=== PATIENT | male | born 1955 | race Caucasian/White ===

== ENCOUNTER 2020-03-14 07:14 | Outpatient (CLI) | payer BC, OTHER ==
[2020-03-15 14:23] LABS: SARS-CoV-2 MS2 Positive; SARS-CoV-2 N Gene Negative; SARS-CoV-2 S Gene Negative; SARS-CoV-2 by NAA Not Detected (NotDetected); SARS-CoV-2 orf1ab Negative
== END 2020-03-14 07:15 | disposition home or self-care (01) ==
LOC: LABBT 07:14
PROVIDERS: ATTEND Internal Medicine Cardiovascular Disease
DX: Z01.812 Encounter for preprocedural laboratory examination (principal); Z11.59 Encounter for screening for other viral diseases; I48.91 Unspecified atrial fibrillation
CPT/HCPCS: 87635; U0003

== ENCOUNTER 2021-08-27 09:21 | Outpatient (CLI) | payer BC ==
[2021-08-27 10:52] LABS: Hemoglobin 13.4 g/dL (13.5-17.5); Mean Corpuscular HGB CONC 33.5 g/dL (32.0-36.0); Mean Corpuscular Hemoglobin 33.3 pg (27.0-33.0); Mean Corpuscular Volume 99.5 fl (81.2-95.1); Mean Platelet Volume 9.7 fl (7.4-10.4); Platelet Count 183 10x3/uL (150-450); RBC Distribution Width 12.2 % (11.5-14.5); Red Blood Cell (RBC) Count 4.02 10x6/uL (4.32-5.72); White Blood Cell (WBC) Count 3.9 10x3/uL (3.5-10.5)
[2021-08-27 11:20] LABS: INR-International Normal Ratio 1.1; PTT 29.5 sec (22.0-33.0); Prothrombin Time 11.6 sec (9.5-12.1)
[2021-08-27 11:21] LABS: Anion Gap 11 mmol/L (10-20); BUN (Urea Nitrogen) 14 mg/dL (8.4-25.7); Calc. Creatinine Clearance 0 mL/min (70-130); Calcium 9.3 mg/dL (7.8-10.44); Carbon Dioxide 27 mmol/L (23-31); Chloride 101 mmol/L (98-107); Glucose 89 mg/dL (80-115); Potassium 4.9 mmol/L (3.5-5.1); Sodium 134 mmol/L (136-145)
[2021-08-27 21:44] LABS: SARS-CoV-2 PCR by NAA Not Detected (NotDetected)
== END 2021-08-27 09:22 | disposition home or self-care (01) ==
LOC: LABBT 09:21
PROVIDERS: ATTEND Internal Medicine Cardiovascular Disease
DX: Z01.812 Encounter for preprocedural laboratory examination (principal); I48.0 Paroxysmal atrial fibrillation; Z20.822 Contact with and (suspected) exposure to COVID-19
CPT/HCPCS: 80048; 85027; 85610; 85730; U0003; U0005

== ENCOUNTER 2021-09-01 06:09 | Day surgery (SDC) | payer MEDICARE, BC ==
[2021-08-21 11:22] VITALS: BMI 33.0
[2021-09-01] MEDS ORDERED: Heparin 10,000 UNITS/ 10 ML VIAL ONE (06:39)
[2021-09-01] MEDS ORDERED: Heparin 25,000 units/D5W 500 ML ONE (06:39)
[2021-09-01] MEDS ORDERED: Protamine Sulfate 50 MG/5 ML VIAL ONE (06:39)
[2021-09-01] MEDS ORDERED: Fentanyl 100 MCG/2 ML VIAL ONE ×3 (06:48→12:11)
[2021-09-01] MEDS ORDERED: Phenylephrine 10 MG/ML VIAL ONE (06:49)
[2021-09-01] MEDS ORDERED: Glycopyrrolate 0.2 MG/ML 5 ML SYRINGE ONE (07:57)
[2021-09-01] MEDS ORDERED: Rocuronium Bromide 10 MG/ML (10ML VIAL) ONE (07:57)
[2021-09-01] MEDS ORDERED: Dexamethasone 20 MG/5 ML VIAL ONE (07:57)
[2021-09-01] MEDS ORDERED: PHENYLEPHRINE-NS 100 MCG/ML 10 ML SYRINGE ONE (07:57)
[2021-09-01] MEDS ORDERED: Ketorolac Tromethamine 30 MG/ML VIAL ONE (07:57)
[2021-09-01] MEDS ORDERED: Lidocaine 1% PF 5 ML VIAL ONE (07:57)
[2021-09-01] MEDS ORDERED: PROPOFOL 200 MG/20 ML VIAL ONE (07:57)
[2021-09-01] MEDS ORDERED: Ondansetron PF 4 MG/2 ML Vial ONE (07:57)
[2021-09-01] MEDS ORDERED: Isoproterenol 0.2 MG/1 ML AMP ONE (08:39)
[2021-09-01] MEDS ORDERED: Potassium Chloride 20 MEQ TAB PO PRN (11:37)
[2021-09-01] MEDS ORDERED: Ketorolac Tromethamine 30 MG/ML VIAL IVP PRN (11:42)
[2021-09-01] MEDS ORDERED: Acetaminophen/Codeine 30-300mg Tablet ONE (14:20)
[2021-09-01] MEDS ORDERED: Acetaminophen/Codeine 30-300mg Tablet PO PRN ×2 (16:15)
[2021-09-01] MEDS ORDERED: Sucralfate 1 GM TAB PO SCH (17:00)
[2021-09-02] MEDS ORDERED: Furosemide 40 MG TAB PO PRN (09:00)
== END 2021-09-01 16:02 | disposition home or self-care (01) ==
LOC: SDC 06:09
PROVIDERS: ATTEND Internal Medicine Cardiovascular Disease
PROC: B244ZZZ Ultrasonography of Right Heart (ICD-10-PCS; principal; 2021-09-01)
PROC: 02583ZZ Destruction of Conduction Mechanism, Percutaneous Approach (ICD-10-PCS; 2021-09-01)
PROC: 02K83ZZ Map Conduction Mechanism, Percutaneous Approach (ICD-10-PCS; 2021-09-01)
PROC: 4A023FZ Measurement of Cardiac Rhythm, Percutaneous Approach (ICD-10-PCS; 2021-09-01)
PROC: 4A0234Z Measurement of Cardiac Electrical Activity, Percutaneous Approach (ICD-10-PCS; 2021-09-01)
DX: I48.0 Paroxysmal atrial fibrillation (principal); I48.92 Unspecified atrial flutter; I08.1 Rheumatic disorders of both mitral and tricuspid valves; Z87.891 Personal history of nicotine dependence; Z79.01 Long term (current) use of anticoagulants; Z79.899 Other long term (current) drug therapy
CPT/HCPCS: 85347 ×2; 93005; 93613; 93622; 93623; 93656; 93657; 93662; C1730; C1732 ×2; C1759; C1776; J1100; J1644; J1885; J2370; J2405; J2704; J2720; J3010

== ENCOUNTER 2024-03-02 05:55 | Day surgery (SDC) | payer BC ==
[2024-03-01 14:32] VITALS: BMI 28.3
[~2024-03-02 05:55] MED LIST: EPINEPHrine 0.3 MG in Ophthalmic Irrigation Solution 500 ML IRR SCH
[2024-03-02] MEDS ORDERED: PHENYLephrine 2.5% Ophth Soln 15 ml Bottle ONE (06:08)
[2024-03-02] MEDS ORDERED: Cyclopentolate 1% Opth Drop 2 ML BOT ONE (06:08)
[2024-03-02] MEDS ORDERED: Midazolam HCl 2 mg/2 ml Vial ONE (06:55)
[2024-03-02] MEDS ORDERED: fentaNYL 50 mcg/mL 1 mL Vial ONE (06:55)
[2024-03-02] MEDS ORDERED: PROPOFOL 20 ML ONE (06:55)
[2024-03-02] MEDS ORDERED: Triamcinolone 40 MG/ML VIAL ONE (07:01)
[2024-03-02] MEDS ORDERED: Maxitrol 0.1% Opth Oint 3.5 GM TUBE ONE (07:01)
[2024-03-02] MEDS ORDERED: Lidocaine 4% PF 5 ML AMP ONE (07:01)
[2024-03-02] MEDS ORDERED: Bupivacaine 0.75% 10 ML VIAL ONE (07:01)
[2024-03-02] MEDS ORDERED: Lidocaine 1% PF 5 ML VIAL ONE ×2 (07:01)
[2024-03-02] MEDS ORDERED: CEFAZOLIN 1 GM VIAL ONE (07:01)
[2024-03-02] MEDS ORDERED: TISSUEBLUE 0.5 ML SYRINGE IO ONE (07:01)
== END 2024-03-02 09:05 | disposition home or self-care (01) ==
LOC: SDC 05:55
PROVIDERS: ATTEND Ophthalmology Retina Specialist
PROC: 08T53ZZ Resection of Left Vitreous, Percutaneous Approach (ICD-10-PCS; principal; 2024-03-02)
DX: H35.372 Puckering of macula, left eye (principal)
CPT/HCPCS: J0171; J0690; J2250; J2704; J3010; J3301; J3490